=== PATIENT | male | born 1990 | race Caucasian/White ===

== ENCOUNTER → 2016-05-01 | Outpatient (REF) ==
--- NOTE | 2016-05-01 15:10 | REP ---
Clinical: Pain and disability. Technique: AP, lateral, coned-down views. Findings: Alignment and lordosis maintained. No acute fracture / compression injury or subluxation. Minimal disc space narrowing at the L5-L1 level cannot be excluded and should be correlated clinically. Impression: Cannot exclude minimal disc space narrowing at the L5-L1 level. Signed by Joel Greer MD 05/01/2016 02:42 P
== END ==
LOC: M SMT 13:15
PROVIDERS: ATTEND Internal Medicine
DX: Z02.71 Encounter for disability determination (principal)